=== PATIENT | female | born 1970 | race Hispanic/Latino ===

== ENCOUNTER 2022-12-28 19:41 | Emergency (ER) | payer SELFPAY ==
[2022-12-28] MEDS ORDERED: NA CHLORIDE 0.9% 1,000 ML ONE (20:53)
[2022-12-28] MEDS ORDERED: KETOROLAC 30 MG/ML INJ ONE (20:53)
[2022-12-28 21:07] LABS: Protime INR 1.08
[2022-12-28 21:08] LABS: Absolute Lymphocytes (CBC) 5.3 K/uL (0.7-4.9); Hematocrit 36.3 % (36.0-45.0); MCV 93.8 fL (80-100); MPV 8.6 fL (7.6-11.3); Platelets 337 thou/uL (152-406); RBC Red Blood Cell Count 3.87 M/uL (3.86-4.86)
[2022-12-28 21:22] LABS: ALT/SGPT 27 U/L (13-56); AST/SGOT 17 U/L (15-37); Albumin 3.8 g/dL (3.4-5.0); Alkaline Phosphatase 111 U/L (45-117); BUN Blood Urea Nitrogen 13 mg/dL (7-18); Bicarbonate 26 mEq/L (21-32); Bilirubin Total 0.2 mg/dL (0.2-1.0); Glomerular Filtration Rate 102 ml/min (=/>90); Glucose Level 104 mg/dL (74-106); Magnesium 2.2 mg/dL (1.6-2.4); NT PRO-BNP 61 pg/mL (<125); Potassium 3.9 mEq/L (3.5-5.1); Protein, Total 8.4 g/dL (6.4-8.2); Sodium Level 137 mEq/L (136-145); Troponin High Sensitivity 3.5 pg/mL (<58.9)
--- NOTE | 2022-12-28 21:30 | RAD REPORT ---
EXAM DESCRIPTION: RAD - Chest Single View - 12/28/2022 9:12 pm CLINICAL HISTORY: CHEST PAIN COMPARISON: No comparisons FINDINGS: Lines: None. Lungs: No evidence of edema or pneumonia. Pleural: No significant pleural effusions or pneumothorax. Cardiac: The heart size is within normal limits. Mediastinum: Within normal limits. Bones: No acute fractures. Other: None IMPRESSION: No acute cardiopulmonary disease.
[2022-12-28 21:33] LABS: Specific Gravity 1.017 (1.005-1.030)
[2022-12-28 21:35] LABS: Specific Gravity 1.017 (1.005-1.030); Urine Bacteria None Seen /HPF (<20); Urine Bilirubin NEGATIVE (Negative); Urine Blood Negative (Negative); Urine Clarity Clear (Clear); Urine Color Colorless (Yellow); Urine Glucose NEGATIVE (Negative); Urine Mucus Slight /HPF (None Seen); Urine Protein NEGATIVE (Negative); Urine RBC <5 /HPF (None Seen); Urine Urobilinogen Normal (Normal)
[2022-12-28 21:39] LABS: Bilirubin Direct < 0.1 mg/dL (0-0.2); Bilirubin Indirect, Calculated ND mg/dL (0.2-0.8)
--- NOTE | 2022-12-28 23:20 | RAD REPORT ---
EXAM DESCRIPTION: CT - Head Brain Wo Cont - 12/28/2022 11:14 pm CLINICAL HISTORY: HEADACHE COMPARISON: No comparisons TECHNIQUE: All CT scans are performed using dose optimization technique as appropriate and may inclu de automated exposure control or mA/KV adjustment according to patient size. FINDINGS: No intracranial hemorrhage, hydrocephalus or extra-axial fluid collection.No areas of brai n edema or evidence of midline shift. The paranasal sinuses and mastoids are clear. The calvarium is intact. IMPRESSION: No acute intracranial abnormality.
--- NOTE | 2022-12-29 00:41 | ER ---
Nurse's Notes [facility] Name: Muriel Correa Age: 52 yrs Sex: Female : 1970 Arrival Date: 12/28/2022 Time: 19:41 Bed 8 Private MD: Diagnosis: Chest pain, unspecified;Headache Presentation: 12/28 19:53 Chief complaint: Patient's son or daughter states: DIL Her head hurts and the left side vc1 of her face is hurting and she has body aches. This has been since thursday.The left side felt real tight and then it went away. Coronavirus screen: Client denies travel out of the [place] in the last 14 days. headache, Client presents with at least one sign or symptom that may indicate coronavirus-19. Ebola Screen: Patient negative for fever greater than or equal to 101.5 degrees Fahrenheit, and additional compatible Ebola Virus Disease symptoms Patient denies exposure to infectious person. Patient denies travel to an Ebola-affected area in the 21 days before illness onset. No symptoms or risks identified at this time. Initial Sepsis Screen: Does the patient meet any 2 criteria? No. Patient's initial sepsis screen is negative. Does the patient have a suspected source of infection? No. Patient's initial sepsis screen is negative. Risk Assessment: Do you want to hurt yourself or someone else? Patient reports no desire to harm self or others. Onset of symptoms was December 26, 2022. 19:53 Method Of Arrival: Ambulatory vc1 19:53 Acuity: LYNN 4 vc1 20:00 Note also feels short of breath, "like I need to take a breath but can't". vc1 Triage Assessment: 19:58 Headache History: Denies prior headaches. General: Appears in no apparent distress. vc1 uncomfortable, Behavior is calm, cooperative, appropriate for age. Pain: Complains of pain in forehead, left ear and left confucianist Pain does not radiate. Pain currently is 8 out of 10 on a pain scale. Quality of pain is described as burning, Pain began markus Also complains of no other associated symptoms. EENT: No deficits noted. No signs and/or symptoms were reported regarding the EENT system. Neuro: Level of Consciousness is awake, alert, obeys commands, Oriented to person, place, time, situation, Appropriate for age Reports headache. Cardiovascular: No deficits noted. Respiratory: Reports shortness of breath. GI: No deficits noted. No signs and/or symptoms were reported involving the gastrointestinal system. : No deficits noted. No signs and/or symptoms were reported regarding the genitourinary system. Derm: No deficits noted. No signs and/or symptoms reported regarding the dermatologic system. Musculoskeletal: No deficits noted. No signs and/or symptoms reported regarding the musculoskeletal system. Historical: - Allergies: 19:56 No Known Allergies; vc1 - Home Meds: 19:56 None [Active]; vc1 - PMHx: 19:56 None; vc1 - PSHx: 19:56 None; vc1 - Immunization history:: Client reports receiving the 2nd dose of the Covid vaccine, [employer]. - Social history:: Smoking status: Patient denies any tobacco usage or history of. Screenin:58 Abuse screen: Denies threats or abuse. Nutritional screening: No deficits noted. vc1 Tuberculosis screening: No symptoms or risk factors identified. 12/29 00:50 [facility] ED Fall Risk Assessment (Adult) History of falling in the last 3 months, kl including since admission No falls in past 3 months (0 pts) Confusion or Disorientation No (0 pts) Intoxicated or Sedated No (0 pts) Impaired Gait No (0 pts) Mobility Assist Device Used No (0 pt) Altered Elimination No (0 pt) Score/Fall Risk Level 0 - 2 = Low Risk Oriented to surroundings, Maintained a safe environment. Assessment: 00:49 Reassessment: Patient appears in no apparent distress at this time. Patient is alert, kl oriented x 3, equal unlabored respirations, skin warm/dry/pink. Patient states feeling better. Patient states symptoms have improved. Pain: Denies pain. Cardiovascular: Denies chest pain, Rhythm is sinus rhythm. Respiratory: No deficits noted. Vital Signs: 12/28 19:53 BP 155 / 96; Pulse 82; Resp 18; Temp 97.5; Pulse Ox 100% ; Weight 90.72 kg; Height 5 vc1 ft. 2 in. ; Pain 8/10; 20:00 BP 149 / 72; Pulse 61; Resp 16 S; Pulse Ox 98% on R/A; ha1 21:00 BP 152 / 82; Pulse 63; Resp 17 S; Pulse Ox 99% on R/A; ha1 22:00 BP 145 / 70; Pulse 63; Resp 18 S; Pulse Ox 98% on R/A; ha1 23:00 BP 142 / 75; Pulse 63; Resp 18 S; Pulse Ox 98% on R/A; ha1 12/29 00:00 BP 147 / 82; Pulse 76; Resp 18 S; Pulse Ox 98% on R/A; ha1 00:49 BP 150 / 84; Pulse 65; Resp 16; Pulse Ox 100% on R/A; kl 12/28 19:53 Body Mass Index 36.58 (90.72 kg, 157.48 cm) vc1 12/28 19:53 Pain Scale: Adult vc1 ED Course: 12/28 19:43 Patient arrived in ED. mr 19:45 Ankush Gonsales PA is PHCP. cp 19:45 Jag Tapia MD is Attending Physician. cp 19:56 Triage completed. vc1 19:57 Arm band placed on left wrist. vc1 20:35 Inserted saline lock: 20 gauge in left antecubital area, using aseptic technique. Blood ha1 collected. 20:56 Basic Metabolic Panel Sent. ha1 20:56 CBC with Diff Sent. ha1 20:56 LFT's Sent. ha1 20:56 Magnesium Sent. ha1 20:56 NT PRO-BNP Sent. ha1 20:56 PT-INR Sent. ha1 20:56 Troponin HS Sent. ha1 21:14 XRAY Chest (1 view) In Process Unspecified. EDMS 21:45 Torri Dillon, RN is Primary Nurse. ha1 23:15 CT Head Brain wo Cont In Process Unspecified. EDMS 12/29 00:50 Patient has correct armband on for positive identification. Call light in reach. Side kl rails up X2. 00:50 No provider procedures requiring assistance completed. IV discontinued, intact, kl bleeding controlled, No redness/swelling at site. Pressure dressing applied. Administered Medications: 12/28 21:00 Drug: NS 0.9% IV 500 ml Route: IV; Rate: bolus; Site: right antecubital; ha1 12/29 00:00 Follow up: Response: No adverse reaction; IV Status: Completed infusion; IV Intake: ha1 500ml 12/28 21:00 Drug: NS 0.9% IV 500 ml Route: IV; Rate: 125 ml/hr; Site: right antecubital; ha1 12/29 00:00 Follow up: Response: No adverse reaction; IV Status: Completed infusion; IV Intake: ha1 500ml 12/28 21:05 Drug: Ketorolac IVP 15 mg Route: IVP; Site: right antecubital; ha1 21:50 Follow up: Response: No adverse reaction; Pain is decreased ha1 Medication: 20:00 VIS not applicable for this client. vc1 Intake: 12/29 00:00 IV: 500ml; Total: 500ml. ha1 00:00 IV: 500ml; Total: 1000ml. ha1 Outcome: 00:41 Discharge ordered by . patti 00:50 Discharged to home ambulatory. obdulio 00:50 Condition: stable 00:50 Discharge instructions given to patient, Instructed on discharge instructions, follow up and referral plans. medication usage, Demonstrated understanding of instructions, follow-up care, medications, Prescriptions given X 1. 00:50 Patient left the ED. Signatures: Dispatcher [employer] EDMS Trudi Donohue RN RN kl Rivera, Mary mr Page, Corey, PA PA cp Calcote, Vanessa, RN RN vc1 Torri Dillon RN RN ha1
--- NOTE | 2022-12-29 00:41 | EDPHYS ---
Physician Documentation [facility] Name: Muriel Correa Age: 52 yrs Sex: Female : 1970 Arrival Date: 12/28/2022 Time: 19:41 Bed 8 Private MD: ED Physician Jag Tapia HPI: 12/28 20:20 This 52 yrs old Female presents to ER via Ambulatory with complaints of Body cp aches, Facial pain, Headache. 20:20 The patient complains of pain to the left side of face and head. cp 20:20 The patient describes the headache as aching. Onset: The symptoms/episode cp began/occurred last week. Associated signs and symptoms: Pertinent positives: weakness, body aches, chest pain, Pertinent negatives: altered mental status, neck stiffness, paresthesias, Photophobia vomiting. Severity of symptoms: in the emergency department the pain is unchanged, despite home interventions. Historical: - Allergies: 19:56 No Known Allergies; vc1 - Home Meds: 19:56 None [Active]; vc1 - PMHx: 19:56 None; vc1 - PSHx: 19:56 None; vc1 - Immunization history:: Client reports receiving the 2nd dose of the Covid vaccine, [employer]. - Social history:: Smoking status: Patient denies any tobacco usage or history of. ROS: 20:25 Constitutional: Positive for body aches, Negative for chills, fever, poor PO intake. cp 20:25 Eyes: Negative for injury, pain, redness, and discharge. cp 20:25 ENT: Negative for drainage from ear(s), ear pain, sore throat, difficulty swallowing, difficulty handling secretions. 20:25 Cardiovascular: Positive for chest pain, Negative for edema, palpitations. 20:25 Respiratory: Negative for cough, shortness of breath, wheezing. 20:25 Abdomen/GI: Negative for abdominal pain, vomiting, diarrhea, constipation. 20:25 Neuro: Positive for headache, weakness, Negative for altered mental status, loss of consciousness, syncope. 20:25 All other systems are negative. Exam: 20:30 Constitutional: The patient appears in no acute distress, alert, awake, cp non-diaphoretic, non-toxic, well developed, well nourished, uncomfortable, overweight 20:30 Head/Face: Normocephalic, atraumatic. cp 20:30 Eyes: Periorbital structures: appear normal, Pupils: equal, round, and reactive to light and accomodation, Extraocular movements: intact throughout, Conjunctiva: normal, no exudate, no injection, Sclera: no appreciated abnormality, Lids and lashes: appear normal, bilaterally. 20:30 ENT: External ear(s): are unremarkable, Ear canal(s): are normal, clear, TM's: dullness, bilaterally, Nose: is normal, Mouth: Lips: moist, Oral mucosa: pink and intact, moist, Posterior pharynx: is normal, airway is patent, no erythema, no exudate. 20:30 Neck: ROM/movement: is normal, is supple, without pain, no range of motions limitations, no meningismus, no nuchal rigidity. 20:30 Chest/axilla: Inspection: normal. 20:30 Cardiovascular: Rate: normal, Rhythm: regular. 20:30 Respiratory: the patient does not display signs of respiratory distress, Respirations: normal, no use of accessory muscles, no retractions, labored breathing, is not present, Breath sounds: are clear throughout, no decreased breath sounds, no stridor, no wheezing. 20:30 Abdomen/GI: Inspection: abdomen appears normal, Bowel sounds: active, all quadrants, Palpation: abdomen is soft and non-tender, in all quadrants. 20:30 Back: pain, is absent, ROM is normal. 20:30 Skin: no rash present. 20:30 Neuro: Orientation: to person, place \T\ time. Mentation: is normal, Cerebellar function: is grossly normal, Motor: moves all fours, strength is normal, Sensation: is normal. 21:13 ECG was reviewed by the Attending Physician. cp Vital Signs: 19:53 BP 155 / 96; Pulse 82; Resp 18; Temp 97.5; Pulse Ox 100% ; Weight 90.72 kg; Height 5 vc1 ft. 2 in. ; Pain 8/10; 20:00 BP 149 / 72; Pulse 61; Resp 16 S; Pulse Ox 98% on R/A; ha1 21:00 BP 152 / 82; Pulse 63; Resp 17 S; Pulse Ox 99% on R/A; ha1 22:00 BP 145 / 70; Pulse 63; Resp 18 S; Pulse Ox 98% on R/A; ha1 23:00 BP 142 / 75; Pulse 63; Resp 18 S; Pulse Ox 98% on R/A; ha1 12/29 00:00 BP 147 / 82; Pulse 76; Resp 18 S; Pulse Ox 98% on R/A; ha1 00:49 BP 150 / 84; Pulse 65; Resp 16; Pulse Ox 100% on R/A; kl 12/28 19:53 Body Mass Index 36.58 (90.72 kg, 157.48 cm) vc1 12/28 19:53 Pain Scale: Adult vc1 MDM: 12/28 20:02 Patient medically screened. 23:00 Differential diagnosis: abnormal EKG, acute myocardial infarction, acute pericarditis, cp pericarditis, pleurisy, pneumonia, unstable angina, hypertensive headache, meningitis, migraine, sinusitis. 12/29 00:40 Data reviewed: vital signs, nurses notes, lab test result(s), EKG, radiologic studies, CT scan, plain films. 00:40 I considered the following discharge prescriptions or medication management in the emergency department Medications were administered in the Emergency Department. See MAR. Independent interpretation of the following test(s) in the Emergency Department EKG: See my EKG interpretation above. Counseling: I had a detailed discussion with the patient and/or guardian regarding the historical points, exam findings, and any diagnostic results supporting the discharge/admit diagnosis, lab results, radiology results, to return to the emergency department if symptoms worsen or persist or if there are any questions or concerns that arise at home. Response to treatment: the patient's symptoms have markedly improved after treatment, and as a result, I will discharge patient. 12/28 20:18 Order name: Basic Metabolic Panel; Complete Time: 22:51 12/28 20:18 Order name: CBC with Diff; Complete Time: 22:51 12/28 22:51 Interpretation: Normal except: WBC 12.60; LYMA 5.3. 12/28 20:18 Order name: LFT's; Complete Time: 22:51 12/29 00:18 Interpretation: Normal except: TP 8.4; GLOB 4.6; A/G 0.8. 12/28 20:18 Order name: Magnesium; Complete Time: 22:51 12/28 20:18 Order name: NT PRO-BNP; Complete Time: 22:51 cp /03 20:18 Order name: PT-INR; Complete Time: 22:51 cp 12/28 20:18 Order name: Troponin HS; Complete Time: 22:51 cp /03 20:18 Order name: Urinalysis W/Microscopic; Complete Time: 22:51 cp /04 00:19 Interpretation: Normal except: UESTR 75. cp 12/28 20:18 Order name: PREGU; Complete Time: 22:51 cp 12/28 22:52 Order name: Troponin High Sensitivity; Complete Time: 00:37 cp / 00:37 Interpretation: Reviewed. cp 12/28 20:18 Order name: XRAY Chest (1 view); Complete Time: 22:51 cp 12/28 22:52 Order name: CT Head Brain wo Cont; Complete Time: 00:18 cp /03 20:18 Order name: EKG; Complete Time: 20:19 cp 12/28 20:18 Order name: Cardiac monitoring; Complete Time: 20:56 cp 12/28 20:18 Order name: EKG - Nurse/Tech; Complete Time: 20:56 cp 12/28 20:18 Order name: IV Saline Lock; Complete Time: 20:56 cp 12/28 20:18 Order name: Labs collected and sent; Complete Time: 20:56 cp 12/28 20:18 Order name: O2 Per Protocol; Complete Time: 20:56 cp 12/28 20:18 Order name: O2 Sat Monitoring; Complete Time: 20:56 cp EC/03 21:13 Rate is 82 beats/min. Rhythm is regular. TX interval is normal. QRS interval is normal. cp QT interval is normal. T waves are Inverted in lead aVR. Interpreted by me. Reviewed by me. Administered Medications: 21:00 Drug: NS 0.9% IV 500 ml Route: IV; Rate: bolus; Site: right antecubital; 12/29 00:00 Follow up: Response: No adverse reaction; IV Status: Completed infusion; IV Intake: ha1 500ml 12/28 21:00 Drug: NS 0.9% IV 500 ml Route: IV; Rate: 125 ml/hr; Site: right antecubital; 1 12/29 00:00 Follow up: Response: No adverse reaction; IV Status: Completed infusion; IV Intake: ha1 500ml 12/28 21:05 Drug: Ketorolac IVP 15 mg Route: IVP; Site: right antecubital; ha1 21:50 Follow up: Response: No adverse reaction; Pain is decreased ha1 Disposition Summary: 12/29/22 00:41 Discharge Ordered Location: Home cp Problem: new cp Symptoms: have improved cp Condition: Stable cp Diagnosis - Chest pain, unspecified cp - Headache cp Followup: cp - With: Private Physician - When: 2 - 3 days - Reason: Recheck today's complaints Discharge Instructions: - Discharge Summary Sheet cp - Nonspecific Chest Pain, Adult cp - General Headache Without Cause cp - Aspirin and Your Heart cp Forms: - Medication Reconciliation Form cp - Thank You Letter cp - Antibiotic Education cp - Prescription Opioid Use cp - Patient Portal Instructions cp - Leadership Thank You Letter cp Prescriptions: - Ibuprofen 800 mg Oral Tablet - take 1 tablet by ORAL route every 8 hours As needed take with food; 30 tablet; cp Refills: 0, Product Selection Permitted Signatures: Dispatcher [employer] EDAnkush Brower PA PA cp Calcote, Vanessa RN RN vc1 Torri Dillon RN RN ha1
[2022-12-29 01:34] VITALS: TEMP 97.5; O2SAT 100
[2022-12-29 01:35] VITALS: BP 150/84
--- NOTE | 2022-12-30 16:51 | EKG ---
Test Date: 2022-12-28 Test Time: 21:06:53 Industrial Maintenance Instructor: BAKARI MEASUREMENT RESULTS: Intervals: Rate: 82 [place]: 182 QRSD: 84 QT: 408 QTc: 476 [place]: P: 56 [place]: 182 QRS: 42 T: 22 INTERPRETIVE STATEMENTS: Normal sinus rhythm Normal ECG No previous ECG available for comparison Electronically Signed On 12-30-22 16:45:16 CDT by Brady Florian
== END 2022-12-29 00:50 | disposition home or self-care (01) ==
LOC: ER 19:41
DX: R07.89 Other chest pain (principal); R51.9 Headache, unspecified
CPT/HCPCS: 36415; 70450; 71045; 80048; 80076; 81001; 81025; 83735; 83880; 84484; 85025; 85610; 93005; 96361; 96374; 99284; J7040